=== PATIENT | male | born 1960 | race Caucasian/White ===

== ENCOUNTER → 2021-05-10 | Outpatient (CLI) | payer OTHER | LOC: CAT 14:03 | PROVIDERS: ATTEND Internal Medicine Cardiovascular Disease | DX: Z13.6 Encounter for screening for cardiovascular disorders (principal); E78.00 Pure hypercholesterolemia, unspecified; I25.10 Atherosclerotic heart disease of native coronary artery without angina pectoris ==

== ENCOUNTER → 2021-05-19 | Outpatient (CLI) | payer BC, OTHER | LOC: SJCVCIMAG 07:37 | PROVIDERS: ATTEND Internal Medicine Cardiovascular Disease | DX: Z13.6 Encounter for screening for cardiovascular disorders (principal) ==

== ENCOUNTER → 2021-06-06 | Outpatient (CLI) | payer BC, OTHER ==
--- NOTE | 2021-06-11 21:07 | SLE ---
[facility] [place] [address] POLYSOMNOGRAPHY STUDY Name: MIGUEL A WESTFALL [facility] [id number] Admission: 06/06/21 Attend Phys: Heath Ruelas MD Discharge: Date of : 64 Report #: [id number] THIS REPORT FOR: cc: SAMAN JESUS MD, JESSE MD Khan,Heath Joy MD ~ cc: Carlo Park MD DATE OF SERVICE: 06/06/2021 SLEEP STUDY ATTENDING PHYSICIAN: Carlo Park MD. The patient is 61-year-old who weighs 275 pounds with a BMI of 37.3. The patient's Bryant score was 10. The patient underwent diagnostic sleep study performed at [place] sleep lab. During the night study, the patient spent 462 minutes in bed and slept for 354 minutes with a sleep efficiency of 77%. Sleep latency was 6.4 minutes with a REM latency of 92 minutes. Sleep architecture showed normal stage I sleep, increased stage II sleep, normal slow wave and slightly reduced REM sleep, which was 16% of the total sleep time. During the night of the study, the patient had 9 obstructive apneas, 2 central apneas, no mixed apneas and 20 hypopneas. The patient's AHI was 5.3 per hour with a REM AHI of 18.6 per hour and a supine AHI of 0 per hour. EKG monitoring revealed an average heart rate of 61 beats per minute. No sustained arrhythmias observed. PLMs were seen at an index of 44 per hour, only 2 per hour caused EEG arousals. Nocturnal oximetry study revealed an average oxygen saturation of 94% with a lowest of 82%. 8 minutes were spent with oxygen saturation less than 89%. Due to low AHI, the patient did not meet the split night criteria for CPAP initiation. IMPRESSION: 1. Mild obstructive sleep apnea with moderate increase during REM sleep. Total AHI of 5.3 per hour with a REM AHI of 18.6 per hour. 2. Nocturnal hypoxia secondary to obstructive sleep apnea. 3. Moderate to severe PLMs without any significant EEG arousals. RECOMMENDATIONS: [facility] [address] [place] [address] POLYSOMNOGRAPHY STUDY Name: KHOIMIGUEL A GALINDO [facility] #: [facility] [id number] Admission: 06/06/21 Attend Phys: Heath Ruelas MD Discharge: Date of : 64 Report #: [id number] 1. The patient did not meet the split night criteria for CPAP initiation due to low AHI. The patient is clinically symptomatic with an Bryant score of 10. Consider treatment of sleep apnea with either CPAP versus oral appliance. 2. Once the patient is optimally treated, then follow up in 4 to 6 weeks to assess compliance and to document clinical improvement. 3. Weight loss is strongly advised. 4. Avoid [employer] depressants. 5. Cautioned regarding driving until patient's hypersomnia is resolved. 6. PLMs do not need to be treated. If the patient has symptoms of restless legs, then it can be treated. <ELECTRONICALLY SIGNED> By: Heath Ruelas MD 06/11/21 [id number] Heath Ruelas MD /nt
== END ==
LOC: SLEEPLAB 11:21
PROVIDERS: ATTEND Internal Medicine Critical Care Medicine
DX: G47.33 Obstructive sleep apnea (adult) (pediatric) (principal); G47.34 Idiopathic sleep related nonobstructive alveolar hypoventilation; G47.61 Periodic limb movement disorder; G47.10 Hypersomnia, unspecified; Z68.37 Body mass index [BMI] 37.0-37.9, adult